=== PATIENT | female | born 1980 | race Caucasian/White ===

== ENCOUNTER 2016-09-30 07:12 | Day surgery (SDC) | payer BC ==
[~2016-09-30 07:12] MED LIST: Acetaminophen/HYDROcodone 325-5 MG Tab PO PRN; Bupivacaine 0.25%/EPINEPHrine 1:200,000 10 ML SDV INJECT ONE; Lactated Ringers 1,000 ML IV SCH; ceFAZolin 2 GM in Premix Bag 1 BAG IV ONE
[2016-09-30] MEDS ORDERED: Bupivacaine 0.25%/EPINEPHrine 1:200,000 10 ML SDV ONE (07:16)
--- NOTE | 2016-09-30 07:34 | PCM.PREANE ---
Preanesthetic Assessment - Anesthesia/Transfusion/Family Hx Anesthesia History: Prior Anesthesia Without Reaction Family History of Anesthesia Reaction: No Transfusion History: No Prior Transfusion(s) - Review of Systems General: No Symptoms Pulmonary: No Symptoms Cardiovascular: No Symptoms Gastrointestinal: No symptoms Neurological: No Symptoms Other: Reports: None - Physical Assessment NPO Status Date: 09/29/16 O2 Sat by Pulse Oximetry: 98 Respiratory Rate: 16 Vital Signs: Last Vital Signs Temp 36.3 C 09/30/16 07:19 Pulse 67 09/30/16 07:19 Resp 16 09/30/16 07:19 BP 130/62 09/30/16 07:19 Pulse Ox 98 09/30/16 07:19 Height: 1.57 m Weight: 119.295 kg ASA Class: 2 Mental Status: Alert & Oriented x3 Airway Class: Mallampati = 2 Dentition: Reports: Normal Dentition (tongue stud) ROM/Head Extension: Full Lungs: Clear to auscultation, Normal respiratory effort Cardiovascular: Regular Rate, Regular Rhythm - Allergies Allergies/Adverse Reactions: Allergies Allergy/AdvReac Type Severity Reaction Status Date / Time No Known Allergies Allergy Verified 04/08/16 10:03 - Blood Blood Available: No - Anesthesia Plan Pre-Op Medication Ordered: None - Acknowledgements Anesthesia Type Planned: MAC Pt an Appropriate Candidate for the Planned Anesthesia: Yes Alternatives and Risks of Anesthesia Discussed w Pt/Guardian: Yes Pt/Guardian Understands and Agrees with Anesthesia Plan: Yes Additional Comments: problem list: Morbid obesity (bmi=48), hyperlipidemia, PCOS, depression PreAnesthesia Questionnaire HEENT History: Reports: Other (See Below) Other HEENT History: wears glasses/contacts Cardiovascular History: Reports: High Cholesterol Gastrointestinal History: Reports: Other (See Below) Other Gastrointestinal History: occasional heartburn Genitourinary History: Reports: None 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: Reports: Polycystic Ovaries Musculoskeletal History: Reports: Back Pain, Chronic Psychiatric History: Reports: Depression Endocrine/Metabolic History: Reports: Obesity/BMI 30+ - Past Surgical History Head Surgeries/Procedures: Reports: None HEENT Surgical History: Reports: Adenoidectomy, Tonsillectomy Female Surgical History: Reports: Breast Reduction - SUBSTANCE USE Smoking Status *Q: Former Smoker Tobacco Use Within Last Twelve Months: No Recreational Drug Use History: No - HOME MEDS Home Medications: Home Meds Pravastatin Sodium 10 mg PO DAILY 04/08/16 [History] Venlafaxine HCl [Venlafaxine ER] 0.5 tab PO DAILY 04/08/16 [History] Vilazodone [Viibryd] 40 mg PO DAILY 04/08/16 [History] metFORMIN HCl [Metformin HCl] 500 mg PO TID 04/08/16 [History] cloNIDine [Catapres] 0.1 mg PO BID 09/28/16 [History] - CURRENT (IN HOUSE) MEDS Current Meds: Current Medications Hydrocodone Bitart/Acetaminophen ([place] 325-5 Mg) 1 tab PO Q4H PRN PRN Reason: Pain Lactated Ringer's (Ringers, Lactated) 1,000 mls @ 125 mls/hr IV ASDIRECTED RENETTA Discontinued Medications Bupivacaine HCl/Epinephrine Bitart (Marcaine 0.25%/Epinephrine 1:200,000) 10 ml INJECT ONETIME ONE Stop: 09/30/16 07:01 Bupivacaine HCl/Epinephrine Bitart (Marcaine 0.25%/Epinephrine 1:200,000) Confirm Administered Dose 30 ml .ROUTE .STK-MED ONE Stop: 09/30/16 07:17 Cefazolin Sodium/Dextrose 2 gm (/ Premix) 50 mls @ 100 mls/hr IV ONETIME ONE Stop: 09/30/16 07:29
[2016-09-30] MEDS ORDERED: Propofol 200 MG/20 ML SDV ONE (08:42)
[2016-09-30] MEDS ORDERED: Lidocaine 2% 5 ML SDV ONE (08:42)
[2016-09-30] MEDS ORDERED: fentaNYL 100 MCG/2 ML SDV ONE (08:42)
[2016-09-30] MEDS ORDERED: Midazolam 1 MG/ML 2 ML SDV ONE (08:42)
[2016-09-30] MEDS ORDERED: Ondansetron 4 MG/2 ML SDV ONE (08:43)
[2016-09-30] MEDS ORDERED: Ketorolac 30 MG/ML SDV ONE (08:43)
[2016-09-30] MEDS ORDERED: fentaNYL 100 MCG/2 ML SDV IVPUSH PRN (09:22)
--- NOTE | 2016-09-30 09:39 | PCM.POSTAN ---
POST ANESTHESIA ASSESSMENT - MENTAL STATUS Mental Status: alert, oriented - RESPIRATORY Respiratory Status: respiratory rate WNL, airway patent, O2 saturation stable - CARDIOVASCULAR CV Status: pulse rate WNL, blood pressure stable - GASTROINTESTINAL GI Status: no symptoms - POST OP HYDRATION Hydration Status: adequate & stable
--- NOTE | 2016-09-30 09:53 | PCM48HPAN ---
Post Anesthesia Note - EVALUATION WITHIN 48HRS OF ANESTHETIC Vital Signs in Normal Range: Yes Patient Participated in Evaluation: Yes Respiratory Function Stable: Yes Airway Patent: Yes Cardiovascular Function Stable: Yes Hydration Status Stable: Yes Pain Control Satisfactory: Yes Nausea and Vomiting Control Satisfactory: Yes Mental Status Recovered: Yes
[2016-09-30 10:02] VITALS: BP 116/58
--- NOTE | 2016-09-30 14:00 | PCM.OPNOTE ---
- General Post-Op/Procedure Note Date of Surgery/Procedure: 09/30/16 Operative Procedure(s): right carpal tunnel release Pre Op Diagnosis: right carpal tunnel syndrome Post-Op Diagnosis: Same Anesthesia Technique: Local, MAC Primary Surgeon: Kristen Wallis Addictions Recovery Specialist: Irina Ramesh Complications: None Condition: Good Free Text/Narrative:: Intake & Output 09/29/16 09/30/16 09/30/16 23:59 07:59 15:59 Intake Total 900 Balance 900
--- NOTE | 2016-10-05 16:59 | OR ---
SURGEON: SHERYL DICKINSON MD DATE OF PROCEDURE: 09/30/2016 PREOPERATIVE DIAGNOSIS: Right carpal tunnel syndrome. POSTOPERATIVE DIAGNOSIS: Right carpal tunnel syndrome. PROCEDURE: Right carpal tunnel release. ANALYTICS SENIOR MANAGER: Irina Ramesh. ANESTHESIA: Local MAC. INDICATIONS: Ms. Honeycutt is a 36-year-old female with right carpal tunnel syndrome. Risks and benefits of release were discussed with her, and she was in agreement to proceed. Risks were including, but not limited to, bleeding, infection, damage to underlying or overlying structures, possible need for future interventions and possible scarring. PROCEDURE IN DETAIL: After informed consent was obtained and placed on the chart, the patient was brought to the operating theater and laid in supine. After adequate local MAC anesthetic was obtained, a time-out was completed to confirm side and site. The area was prepped and draped in a normal fashion using ChloraPrep cleansing solution. Attention was then paid to exsanguination of the arm and the tourniquet was inflated to 200 mmHg. Once adequately insufflated, attention was then paid to dissection over the transverse carpal ligament which was done using a 15 blade through the skin and subcutaneous tissues until the ligament was breached. Dissection was then carried distally and proximally using a Littler scissor. Once adequately dissected and complete release was ensured, the small amount of scar tissue forming around the nerve was released as well. The wound was then copiously irrigated and closed using 5-0 nylon stitches in a horizontal mattress fashion. The patient tolerated the procedure well and the wound was dressed with Xeroform, fluffs, and a Kerlix gauze dressing and a 2-inch ADITYA wrap. FOLLOWUP INSTRUCTIONS: The patient will see us in 10 to 14 days. She was given a prescription for pain control. HEGGTMALIK / MING /[id number]
== END 2016-09-30 10:22 | disposition home or self-care (01) ==
LOC: MW.SDS 07:12
PROVIDERS: ATTEND Plastic Surgery
PROC: 01N50ZZ Release Median Nerve, Open Approach (ICD-10-PCS; principal; 2016-09-30)
DX: G56.01 Carpal tunnel syndrome, right upper limb (principal); E78.00 Pure hypercholesterolemia, unspecified; G89.29 Other chronic pain; M54.9 Dorsalgia, unspecified; F32.9 Major depressive disorder, single episode, unspecified; E78.5 Hyperlipidemia, unspecified; E28.2 Polycystic ovarian syndrome; E66.01 Morbid (severe) obesity due to excess calories; Z87.891 Personal history of nicotine dependence; Z86.19 Personal history of other infectious and parasitic diseases; Z90.89 Acquired absence of other organs; Z98.890 Other specified postprocedural states; Z79.899 Other long term (current) drug therapy; Z68.42 Body mass index [BMI] 45.0-49.9, adult
CPT/HCPCS: 64721; 81025; J1885; J2250; J2405; J3010; 01810; J2704

== ENCOUNTER 2018-10-16 07:18 | Day surgery (SDC) | payer BC ==
[2018-10-16] MEDS ORDERED: Methylene Blue 50 MG/10 ML Ampule ONE (07:32)
[2018-10-16] MEDS ORDERED: Bupivacaine 0.25% 10 ML SDV ONE (07:33)
[2018-10-16] MEDS ORDERED: Fluorescein 5 ML Vial ONE (07:33)
[2018-10-16] MEDS ORDERED: Midazolam 1 MG/ML 2 ML SDV ONE (07:35)
[2018-10-16] MEDS ORDERED: Propofol 200 MG/20 ML SDV ONE ×3 (07:35→11:35)
[2018-10-16] MEDS ORDERED: fentaNYL 250 MCG/5 ML SDV ONE (07:35)
[2018-10-16] MEDS: Lactated Ringers 1,000 ML IV SCH ×2 (08:19→18:15)
--- NOTE | 2018-10-16 08:54 | PCM.PREANE ---
Preanesthetic Assessment - Anesthesia/Transfusion/Family Hx Anesthesia History: Prior Anesthesia Without Reaction Family History of Anesthesia Reaction: No Transfusion History: No Prior Transfusion(s) Intubation History: Unknown - Review of Systems General: No Symptoms Pulmonary: No Symptoms Cardiovascular: No Symptoms Gastrointestinal: No Symptoms Neurological: No Symptoms Other: Reports: None - Physical Assessment NPO Status Date: 10/15/18 NPO Status Time: 23:00 O2 Sat by Pulse Oximetry: 96 Respiratory Rate: 16 Vital Signs: Last Vital Signs Temp 36.2 C 10/16/18 08:00 Pulse 68 10/16/18 08:00 Resp 16 10/16/18 08:00 BP 121/71 10/16/18 08:00 Pulse Ox 96 10/16/18 08:00 Height: 5 ft 2 in Weight: 123.377 kg ASA Class: 3 Mental Status: Alert & Oriented x3 Airway Class: Mallampati = 2 Dentition: Reports: Normal Dentition Thyro-Mental Finger Breadths: 3 Mouth Opening Finger Breadths: 3 ROM/Head Extension: Full Lungs: Clear to Auscultation, Normal Respiratory Effort Cardiovascular: Regular Rate, Regular Rhythm - Lab Values: Laboratory Last Values WBC 8.69 K/uL (4.0-11.0) 10/16/18 07:55 RBC 4.76 M/uL (4.30-5.90) 10/16/18 07:55 Hgb 14.3 g/dL (12.0-16.0) 10/16/18 07:55 Hct 43.8 % (36.0-46.0) 10/16/18 07:55 MCV 92.0 fL (80.0-98.0) 10/16/18 07:55 MCH 30.0 pg (27.0-32.0) 10/16/18 07:55 MCHC 32.6 g/dL (31.0-37.0) 10/16/18 07:55 RDW Std Deviation 43.3 fl (28.0-62.0) 10/16/18 07:55 RDW Coeff of Jacob 13 % (11.0-15.0) 10/16/18 07:55 Plt Count 372 K/uL (150-400) 10/16/18 07:55 MPV 10.20 fL (7.40-12.00) 10/16/18 07:55 Nucleated RBC % 0.0 /100WBC 10/16/18 07:55 Nucleated RBCs # 0 K/uL 10/16/18 07:55 HCG, Qual NEGATIVE (NEG) 10/16/18 07:55 - Allergies Allergies/Adverse Reactions: Allergies Allergy/AdvReac Type Severity Reaction Status Date / Time No Known Allergies Allergy Verified 10/11/18 09:06 - Blood Blood Available: No - Anesthesia Plan Pre-Op Medication Ordered: None - Acknowledgements Anesthesia Type Planned: General Anesthesia Pt an Appropriate Candidate for the Planned Anesthesia: Yes Alternatives and Risks of Anesthesia Discussed w Pt/Guardian: Yes Pt/Guardian Understands and Agrees with Anesthesia Plan: Yes PreAnesthesia Questionnaire HEENT History: Reports: Other (See Below) Other HEENT History: wears glasses/contacts Cardiovascular History: Reports: High Cholesterol Respiratory History: Reports: None Gastrointestinal History: Reports: Other (See Below) Other Gastrointestinal History: rare heartburn Genitourinary History: Reports: None 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: Polycystic Ovaries, Musculoskeletal History: Reports: None Neurological History: Reports: Migraines Other Neuro History: occ migraine Psychiatric History: Reports: Anxiety, Depression Endocrine/Metabolic History: Reports: Obesity/BMI 30+ (BMI 49.7 (morbid obesi) Hematologic History: Reports: None Immunologic History: Reports: None Oncologic (Cancer) History: Reports: None Dermatologic History: Reports: None - Past Surgical History Head Surgeries/Procedures: Reports: None HEENT Surgical History: Reports: Adenoidectomy, Tonsillectomy Cardiovascular Surgical History: Reports: None Respiratory Surgical History: Reports: None GI Surgical History: Reports: None Female Surgical History: Reports: Breast Reduction, Other (See Below) Other Female Surgeries/Procedures: ESSURE Endocrine Surgical History: Reports: None Neurological Surgical History: Reports: None Musculoskeletal Surgical History: Reports: Carpal Tunnel Dermatological Surgical History: Reports: None - SUBSTANCE USE Smoking Status *Q: Never Smoker Tobacco Use Within Last Twelve Months: No Recreational Drug Use History: No - HOME MEDS Home Medications: Home Meds Vilazodone [Viibryd] 40 mg PO DAILY 04/08/16 [History] metFORMIN HCl [Metformin HCl] 500 mg PO TID 04/08/16 [History] Ibuprofen [Motrin] 3 - 4 tab PO ASDIRECTED PRN 10/11/18 [History] Multivitamin [Multivitamins] 1 tab PO DAILY 10/11/18 [History] - CURRENT (IN HOUSE) MEDS Current Meds: Current Medications Lactated Ringer's (Ringers, Lactated) 1,000 mls @ 100 mls/hr IV ASDIRECTED RENETTA Last Admin: 10/16/18 08:19 Dose: 100 mls/hr Discontinued Medications Bupivacaine HCl (Sensorcaine-Mpf 0.25%) Confirm Administered Dose 20 ml .ROUTE .STK-MED ONE Stop: 10/16/18 07:34 Fentanyl (Sublimaze) Confirm Administered Dose 250 mcg .ROUTE .STK-MED ONE Stop: 10/16/18 07:36 Fluorescein Sodium (Ak-Fluor) Confirm Administered Dose 5 ml .ROUTE .STK-MED ONE Stop: 10/16/18 07:34 Methylene Blue (Provayblue) Confirm Administered Dose 50 mg .ROUTE .STK-MED ONE Stop: 10/16/18 07:33 Midazolam HCl (Versed 1 Mg/Ml) Confirm Administered Dose 2 mg .ROUTE .STK-MED ONE Stop: 10/16/18 07:36 Propofol (Diprivan 20 Ml) Confirm Administered Dose 200 mg .ROUTE .STK-MED ONE Stop: 10/16/18 07:36 Propofol (Diprivan 20 Ml) Confirm Administered Dose 200 mg .ROUTE .STK-MED ONE Stop: 10/16/18 07:37
[2018-10-16] MEDS ORDERED: Scopolamine 1.5 MG Transdermal Patch TRDERM PRN (08:57)
[2018-10-16 08:58] LABS: CHLORIDE,CL 104 mmol/L (98-107); SODIUM,NA 141 mmol/L (136-145)
[2018-10-16] MEDS ORDERED: Dexamethasone 4 MG/ML 5 ML MDV ONE (10:05)
[2018-10-16] MEDS ORDERED: Sodium Chloride 0.9% 20 ML ONE (10:05)
[2018-10-16] MEDS ORDERED: Glycopyrrolate 0.2 MG/ML SDV ONE ×2 (10:05→11:22)
[2018-10-16] MEDS ORDERED: Desflurane 240 ML Bottle ONE (10:05)
[2018-10-16] MEDS ORDERED: ceFAZolin 1 GM Vial ONE (10:05)
[2018-10-16] MEDS ORDERED: ceFAZolin/Dextrose,Iso-Osmotic 2 GM/50 ML Duplex Bag IV ONE (10:05)
[2018-10-16] MEDS ORDERED: Rocuronium 100 MG/10 ML MDV ONE (10:11)
[2018-10-16] MEDS ORDERED: HYDROmorphone 2 MG/ML Syringe ONE (10:26)
[2018-10-16] MEDS ORDERED: HYDROmorphone 2 MG/ML SDV IVPUSH ONE (10:27)
[2018-10-16] MEDS ORDERED: fentaNYL 100 MCG/2 ML SDV IVPUSH PRN (10:27)
[2018-10-16] MEDS ORDERED: Furosemide 40 MG/4 ML VIAL ONE (11:22)
[2018-10-16] MEDS ORDERED: Sugammadex Sodium 200 MG/2 ML VIAL ONE (11:44)
[2018-10-16] MEDS ORDERED: Acetaminophen/oxyCODONE 325-5 MG Tab PO PRN ×2 (12:15)
[2018-10-16] MEDS ORDERED: Ketorolac 30 MG/ML SDV IVPUSH ONE (12:15)
[2018-10-16] MEDS ORDERED: Morphine 4 MG/ML Syringe IVPUSH PRN (12:15)
[2018-10-16] MEDS ORDERED: Promethazine 25 MG/ML SDV IM PRN (12:15)
[2018-10-16] MEDS ORDERED: Ondansetron 4 MG/2 ML SDV IVPUSH PRN (12:15)
--- NOTE | 2018-10-16 12:15 | PCM.OPNOTE ---
- General Post-Op/Procedure Note Date of Surgery/Procedure: 10/16/18 Operative Procedure(s): laparoscopically assisted vaginal hysterectomy, bilateral salpingectomy, anterior colporrhaphy and cystoscopy Findings: 2nd degree uterine prolapse, 3rd degree cystocele, left Essure attached to epiploica in the cul de sac (extra-tubal); on cystoscopy, no evidence of trauma to the bladder mucosa; copious flow of urine from bilateral ureteral orifices. Pre Op Diagnosis: incomplete uterovaginal prolapse. Post-Op Diagnosis: Same Anesthesia Technique: General ET Tube Primary Surgeon: Mari Rodríguez Secondary Surgeon: Kiana Schmitt Anesthesia Provider: Yifan Kent Security Checker: Josie Zacarias Pathology: uterus, bilateral fallopian tubes with Essure coils; vaginal mucosa. Fluid Replacement, Intraop: 2,000 Output, Urine Amount: 250 EBL in mLs: 200 Complications: None Known Condition: Good
--- NOTE | 2018-10-16 13:00 | PCM.POSTAN ---
POST ANESTHESIA ASSESSMENT - MENTAL STATUS Mental Status: Alert, Oriented - VITAL SIGNS Pulse Rate: 68 SaO2: 96 Resp Rate: 12 Blood Pressure: 134/80 - RESPIRATORY Respiratory Status: Respiratory Rate WNL, Airway Patent, O2 Saturation Stable - CARDIOVASCULAR CV Status: Pulse Rate WNL, Blood Pressure Stable - GASTROINTESTINAL GI Status: No Symptoms - POST OP HYDRATION Hydration Status: Adequate & Stable
[2018-10-16] MEDS ORDERED: Belladonna Alkaloids/Opium 16.2-30 MG Supp RECTAL ONE (17:32)
--- NOTE | 2018-10-16 18:11 | OR ---
SURGEON: Mari Rodríguez M.D. DATE OF PROCEDURE: 10/16/2018 PREOPERATIVE DIAGNOSIS: Incomplete uterovaginal prolapse. POSTOPERATIVE DIAGNOSIS: Incomplete uterovaginal prolapse. PROCEDURES PERFORMED: Laparoscopically assisted vaginal hysterectomy, bilateral salpingectomy, cystoscopy, and anterior colporrhaphy. PRIMARY SURGEON: Mari Rodríguez M.D. CONTRACT MANAGER: Kiana Schmitt M.D. ANESTHESIA: General endotracheal. FLUIDS: 2000 mL of crystalloid. ESTIMATED BLOOD LOSS: 200 mL. URINE OUTPUT: 250 mL. FINDINGS: Uterus was 8-10 week size. Second-degree uterine prolapse, third-degree cystocele. Bilateral ovaries appeared normal. There was an Essure coil noted in the proximal aspect of the right tube. The left Essure device was in the posterior cul-de-sac and was removed with an epiploica. There was a piece of the coil that was also removed. On cystoscopy, there were copious flow of bright green urine from bilateral ureteral orifices and no damage evident of the vaginal mucosa. COMPLICATIONS: None known. DISPOSITION: Stable to recovery. BRIEF HISTORY: This is a 38-year-old female. She has symptomatic uterovaginal prolapse primarily with bladder issues. She has a third-degree cystocele, second-degree uterine prolapse. She was offered vaginal hysterectomy with anterior colporrhaphy with a laparoscopically assisted approach due to the history of Essure coils which should be removed at the time of surgery. She underwent a cystometry in the office with severe evidence of detrusor instability. She has been started on Myrbetriq. She was not recommended to proceed with a mid urethral sling due to the fact that this was felt to potentially worsen her severe detrusor instability. Risks of surgery were discussed including bleeding, infection, injury to bowel, bladder, blood vessels, ureters, or other organs; risk of thromboembolic event, risk of change in sexual function, risk of recurrence of prolapse of 20% to 40%, and risk of anesthesia. Understanding all these risks, she does desire to proceed. DESCRIPTION OF PROCEDURE: With the patient in dorsal lithotomy position, under adequate general endotracheal anesthesia, the abdomen was prepped with chlorhexidine. The vaginal area was prepped with Betadine and draped in usual fashion for laparoscopically assisted vaginal surgery. SCDs were in place. She received 3 g of Ancef IV and a Moon catheter had been placed and backfilled with 30 mL of dilute and indigo carmine. After appropriate time-out was held, bimanual examination revealed findings as noted above. Speculum was placed in the vagina. The cervix was grasped with an Allis clamp. The ZUMI uterine manipulator was placed to the uterine fundus and the balloon was filled with air. The speculum was removed. Intensivist's gloves were changed. Attention was then turned abdominally where 3 mL of 0.25% Marcaine were injected cephalad from the umbilicus and a 5 mm incision was made with a scalpel. The anterior abdominal wall was elevated. Veress needle was inserted. Opening pressure was 3 to 5 mmHg. CO2 was insufflated to develop an adequate pneumoperitoneum of 15 mmHg. The 5 mm port was then placed via the umbilical incision. There was excellent visualization of the pelvis. There was no evidence of any trauma from the port placement site. Two additional ports were placed 2 cm medial and cephalad from the anterior superior iliac spine on the right and the left in a similar fashion without any difficulty. The patient was placed in Trendelenburg position. The uterus was elevated immediately. There was note that the Essure device was in the posterior cul-de-sac. It was grasped and removed. There was an area with an epiploica that appeared dark and upon further inspection, there was a portion of the Essure coil that was implanted into the epiploica, and this was dissected and removed without difficulty. There was no evidence of any other portion of the Essure device external to the uterus. Therefore, the pelvis was inspected. The ureters were identified bilaterally, were deep within the medial leaf of the broad ligament. The tip of the tube on the left was grasped. The ligament between the tube and the ovary was ligated using the LigaSure and utilizing the LigaSure, I proceeded proximally along the mesosalpinx to the uterine cornua where the utero-ovarian ligament was cross clamped, cut, and ligated using the LigaSure. The round ligament was then doubly clamped, cut, and ligated using the LigaSure, and the anterior leaf of the broad ligament was entered and dissected open and transversely anteriorly across the lower uterine segment to develop an adequate bladder flap. This process was repeated on the opposite side. Attention was then turned vaginally. After the abdomen had been desufflated and the catheter was released, weighted speculum was placed posteriorly and right angle speculums were placed for visualization of the cervix. The cervix was grasped with a Cassandra tenaculum and circumscribed using electrocautery. The anterior and posterior cul-de-sacs were entered sharply and the uterosacral ligaments were cross clamped, cut, and ligated using a Kaykay ligature of 2-0 Polysorb. These were retained with the suture intact. The 2 additional pedicles were taken on the right and the left to meet the pedicles from above. These were doubly clamped with Kaykay clamps, cut, and doubly ligated using a Kaykay ligature of 2-0 Polysorb. With this, the tubes and uterus were then removed vaginally. The retained uterosacral ligaments were ligated to the vaginal apices bilaterally and were then used to incorporate the cul-de-sac, peritoneum on the right and the left, and they were then tied in the midline. The anterior vaginal mucosa at the vaginal cuff was grasped. The anterior vaginal wall was hydrodissected and incised using Metzenbaum scissors in the midline. The muscularis layer was then dissected free and reapproximated the midline using multiple interrupted sutures of 2-0 Polysorb. The scant amount of extra vaginal mucosa was then removed and the vaginal mucosa was closed with a running lock suture of 0 Polysorb incorporating this into the closure of the vaginal cuff. This being completed, the catheter was removed. Cystoscopy was performed. There was excellent visualization. IV fluorescein and Lasix had been given. There was copious flow of bright green urine from bilateral ureteral orifices. There was no evidence of any trauma to the bladder mucosa. This being completed, the speculum was placed in the vagina after the catheter had been replaced in the bladder. There was a small amount of bleeding from the posterior aspect of the vaginal apex and this was controlled using a [id number] suture of 0 Polysorb. This being hemostatic, the vagina was then packed with vaginal packing. All the instruments were removed from the vagina. Intensivist's gloves were again changed. Abdomen was reinsufflated and was carefully cleaned and irrigated, and the pelvis was completely hemostatic low pressure of 5 mmHg, and therefore the abdomen was completely desufflated. Port sites were removed. Port sites were closed with subcuticular suture of 4-0 Monocryl. Final sponge, needle, and instrument counts were reported as correct. There were no complications. The patient was transferred to recovery in good condition. CROW LAI /[id number]
[2018-10-16] MEDS ORDERED: Ketorolac 30 MG/ML SDV IVPUSH PRN (18:15)
--- NOTE | 2018-10-16 18:34 | PCM.SN ---
- Free Text/Narrative Note: Patient's pain is currently well controlled. She is tolerating diet. After morphine pain from bladder seems to be resolved. Reviewed operative findings including extrauterine Essure device which was removed. Continue with postoperative care
[2018-10-17 06:25] LABS: CHLORIDE,CL 103 mmol/L (98-107); SODIUM,NA 137 mmol/L (136-145)
--- NOTE | 2018-10-17 07:52 | PCM48HPAN ---
Post Anesthesia Note - EVALUATION WITHIN 48HRS OF ANESTHETIC Vital Signs in Normal Range: Yes Patient Participated in Evaluation: Yes Respiratory Function Stable: Yes Airway Patent: Yes Cardiovascular Function Stable: Yes Hydration Status Stable: Yes Pain Control Satisfactory: Yes Nausea and Vomiting Control Satisfactory: Yes Mental Status Recovered: Yes Pulse Rate: 68 Resp Rate: 16 Blood Pressure: 134/80 - COMMENTS/OBSERVATIONS Free Text/Narrative:: no anesthesia problems
[2018-10-17 08:34] VITALS: BP 140/67
[2018-10-17] MEDS ORDERED: Vilazodone [Viibryd] 40 MG PO SCH (09:00)
--- NOTE | 2018-10-17 09:12 | PCM.SURGPN ---
- General Info Date of Service: 10/17/18 Date of Surgery/Procedure: 10/16/18 POD#: 1 Post-Op Diagnosis: incomplete uterovaginal prolapse Functional Status: Reports: Pain Controlled, Tolerating Diet, Ambulating, Urinating - Review of Systems General: Reports: No Symptoms Pulmonary: Reports: No Symptoms Cardiovascular: Reports: No Symptoms Genitourinary: Reports: No Symptoms Musculoskeletal: Reports: No Symptoms Skin: Reports: No Symptoms Neurological: Reports: No Symptoms Psychiatric: Reports: No Symptoms - Patient Data Vitals - Most Recent: Last Vital Signs Temp 37.7 C 10/17/18 07:55 Pulse 94 10/17/18 07:55 Resp 20 10/17/18 07:55 BP 140/67 10/17/18 07:55 Pulse Ox 95 10/17/18 07:55 Weight - Most Recent: 123.377 kg I&O - Last 24 Hours: Intake & Output 10/16/18 10/17/18 10/17/18 22:59 06:59 14:59 Output Total 250 3600 Balance -250 -3600 Lab Results Last 24 Hrs: Laboratory Results - last 24 hr 10/16/18 10/17/18 10/17/18 Range/Units 07:55 05:33 05:33 WBC 14.19 H (4.0-11.0) K/uL RBC 3.50 L (4.30-5.90) M/uL Hgb 10.8 L (12.0-16.0) g/dL Hct 32.3 L (36.0-46.0) % MCV 92.3 (80.0-98.0) fL MCH 30.9 (27.0-32.0) pg MCHC 33.4 (31.0-37.0) g/dL RDW Std Deviation 43.2 (28.0-62.0) fl RDW Coeff of Jacob 13 (11.0-15.0) % Plt Count 341 (150-400) K/uL MPV 10.20 (7.40-12.00) fL Neut % (Auto) 78.7 (48.0-80.0) % Lymph % (Auto) 12.4 L (16.0-40.0) % Whitley % (Auto) 8.5 (0.0-15.0) % Eos % (Auto) 0.3 (0.0-7.0) % Baso % (Auto) 0.1 (0.0-1.5) % Neut # (Auto) 11.2 H (1.4-5.7) K/uL Lymph # (Auto) 1.8 (0.6-2.4) K/uL Whitley # (Auto) 1.2 H (0.0-0.8) K/uL Eos # (Auto) 0.0 (0.0-0.7) K/uL Baso # (Auto) 0.0 (0.0-0.1) K/uL Nucleated RBC % 0.0 /100WBC Nucleated RBCs # 0 K/uL Sodium 137 (136-145) mmol/L Potassium 3.9 (3.5-5.1) mmol/L Chloride 103 (98-107) mmol/L Carbon Dioxide 25.8 (21.0-32.0) mmol/L BUN 12 (7.0-18.0) mg/dL Creatinine 1.0 (0.6-1.0) mg/dL Est Cr Clr Drug Dosing 61.51 mL/min Estimated GFR (MDRD) > 60.0 ml/min Glucose 151 H (74-106) mg/dL Calcium 8.4 L (8.5-10.1) mg/dL Blood Type AB POSITIVE Antibody Screen NEGATIVE Med Orders - Current: Current Medications Fentanyl (Sublimaze) 50 mcg IVPUSH Q5M PRN PRN Reason: Pain (severe 7-10) Stop: 10/17/18 10:28 Lactated Ringer's (Ringers, Lactated) 1,000 mls @ 100 mls/hr IV ASDIRECTED [facility] Last Admin: 10/16/18 18:15 Dose: 100 mls/hr Ketorolac Tromethamine (Toradol) 30 mg IVPUSH Q6H PRN PRN Reason: Pain (severe 7-10) Stop: 10/21/18 18:16 Morphine Sulfate (Morphine) 4 mg IVPUSH Q2H PRN PRN Reason: Pain (severe 7-10) Last Admin: 10/16/18 16:09 Dose: 4 mg Ondansetron HCl (Zofran) 4 mg IVPUSH Q6H PRN PRN Reason: Nausea/Vomiting Oxycodone/Acetaminophen (Percocet 325-5 Mg) 1 tab PO Q4H PRN PRN Reason: Pain (moderate 4-6) Oxycodone/Acetaminophen (Percocet 325-5 Mg) 2 tab PO Q4H PRN PRN Reason: Pain (moderate 4-6) Last Admin: 10/16/18 22:13 Dose: 2 tab Vilazodone [Viibryd] (40 Mg) 40 each PO DAILY [facility] Promethazine HCl (Phenergan) 25 mg IM Q6H PRN PRN Reason: Nausea/Vomiting Scopolamine (Transderm-Scop) 1.5 mg TRDERM Q72H PRN PRN Reason: Nausea Last Admin: 10/16/18 09:11 Dose: 1.5 mg Discontinued Medications Bupivacaine HCl (Sensorcaine-Mpf 0.25%) Confirm Administered Dose 20 ml .ROUTE .STK-MED ONE Stop: 10/16/18 07:34 Cefazolin Sodium (Ancef) Confirm Administered Dose 2 gm .ROUTE .STK-MED ONE Stop: 10/16/18 10:06 Cefazolin Sodium/Dextrose (Ancef) Confirm Administered Dose 2 gm IV .STK-MED ONE Stop: 10/16/18 10:06 Desflurane (Suprane) Confirm Administered Dose 240 ml .ROUTE .STK-MED ONE Stop: 10/16/18 10:06 Dexamethasone (Dexamethasone) Confirm Administered Dose 20 mg .ROUTE .STK-MED ONE Stop: 10/16/18 10:06 Fentanyl (Sublimaze) Confirm Administered Dose 250 mcg .ROUTE .STK-MED ONE Stop: 10/16/18 07:36 Fluorescein Sodium (Ak-Fluor) Confirm Administered Dose 5 ml .ROUTE .STK-MED ONE Stop: 10/16/18 07:34 Furosemide (Lasix) Confirm Administered Dose 40 mg .ROUTE .STK-MED ONE Stop: 10/16/18 11:23 Glycopyrrolate (Robinul) Confirm Administered Dose 0.4 mg .ROUTE .STK-MED ONE Stop: 10/16/18 10:06 Glycopyrrolate (Robinul) Confirm Administered Dose 0.2 mg .ROUTE .STK-MED ONE Stop: 10/16/18 11:23 Hydromorphone HCl (Dilaudid) 2 mg IVPUSH ONETIME ONE Stop: 10/16/18 10:28 Last Admin: 10/16/18 15:42 Dose: Not Given Hydromorphone HCl (Dilaudid) Confirm Administered Dose 2 mg .ROUTE .STK-MED ONE Stop: 10/16/18 10:27 Sodium Chloride (Normal Saline) Confirm Administered Dose 20 mls @ as directed .ROUTE .STK-MED ONE Stop: 10/16/18 10:06 Ketorolac Tromethamine (Toradol) 30 mg IVPUSH ONETIME ONE Stop: 10/16/18 12:16 Last Admin: 10/16/18 13:32 Dose: 30 mg Methylene Blue (Provayblue) Confirm Administered Dose 50 mg .ROUTE .STK-MED ONE Stop: 10/16/18 07:33 Midazolam HCl (Versed 1 Mg/Ml) Confirm Administered Dose 2 mg .ROUTE .STK-MED ONE Stop: 10/16/18 07:36 Propofol (Diprivan 20 Ml) Confirm Administered Dose 200 mg .ROUTE .STK-MED ONE Stop: 10/16/18 07:36 Propofol (Diprivan 20 Ml) Confirm Administered Dose 200 mg .ROUTE .STK-MED ONE Stop: 10/16/18 07:37 Propofol (Diprivan 20 Ml) Confirm Administered Dose 200 mg .ROUTE .STK-MED ONE Stop: 10/16/18 11:36 Rocuronium Blanchard (Zemuron) Confirm Administered Dose 100 mg .ROUTE .STK-MED ONE Stop: 10/16/18 10:12 Sugammadex Sodium (Bridion) Confirm Administered Dose 400 mg .ROUTE .STK-MED ONE Stop: 10/16/18 11:45 - Exam Wound/Incisions: Dressing Dry and Intact General: Alert, Oriented Lungs: Normal Respiratory Effort GI/Abdominal Exam: Soft, Non-Tender, No Organomegaly, No Mass Extremities: Normal Inspection, Non-Tender, No Pedal Edema, Normal Capillary Refill Skin: Warm, Dry, Intact Neurological: No New Focal Deficit Psy/Mental Status: Alert - Problem List & Annotations (1) Incomplete uterovaginal prolapse SNOMED Code(s): 523026708 Code(s): N81.2 - INCOMPLETE UTEROVAGINAL PROLAPSE Status: Acute Current Visit: Yes - Problem List Review Problem List Initiated/Reviewed/Updated: Yes - My Orders Last 24 Hours: Active Orders 24 hr Category Date Time Status Patient Status [ADT] Routine ADT 10/16/18 12:15 Active Antiembolic Devices [RC] PER UNIT ROUTINE Care 10/16/18 12:16 Active Bradycardia-Neuroaxis [employer] [RC] ROUTINE Care 10/16/18 10:28 Active Hypertension-Neuroaxis [employer] [RC] ROUTINE Care 10/16/18 10:28 Active Hypotension-Neuroaxis [employer] [RC] ROUTINE Care 10/16/18 10:28 Active Notify Provider Intake and Out [RC] ASDIRECTED Care 10/16/18 12:15 Active Notify Provider Vital Signs [RC] ASDIRECTED Care 10/16/18 12:15 Active Oxygen Therapy [RC] ASDIRECTED Care 10/16/18 12:15 Active RT Incentive Spirometry [RC] Q2HWA Care 10/16/18 12:15 Active Up ad Delores [RC] PER UNIT ROUTINE Care 10/16/18 12:15 Active Urinary Catheter Removal [RC] Per Unit Routine Care 10/16/18 12:15 Active Vital Signs [RC] PER UNIT ROUTINE Care 10/16/18 12:15 Active Regular Diet [DIET] Diet 10/16/18 Dinner Active Acetaminophen/oxyCODONE [Percocet 325-5 MG] Med 10/16/18 12:15 Active 1 tab PO Q4H PRN Acetaminophen/oxyCODONE [Percocet 325-5 MG] Med 10/16/18 12:15 Active 2 tab PO Q4H PRN Ketorolac [Toradol] Med 10/16/18 18:15 Active 30 mg IVPUSH Q6H PRN Mirabegron [Myrbetriq] Med 10/16/18 12:30 Unverified DOSE UNIT RTE FREQ Morphine Med 10/16/18 12:15 Active 4 mg IVPUSH Q2H PRN Ondansetron [Zofran] Med 10/16/18 12:15 Active 4 mg IVPUSH Q6H PRN Patient's Own Medication [Ptom] Med 10/17/18 09:00 Active 40 each PO DAILY Promethazine [Phenergan] Med 10/16/18 12:15 Active 25 mg IM Q6H PRN Scopolamine [Transderm-Scop] Med 10/16/18 08:57 Active 1.5 mg TRDERM Q72H PRN fentaNYL [Sublimaze] Med 10/16/18 10:27 Active 50 mcg IVPUSH Q5M PRN Peripheral IV Discontinue [OM.PC] Routine Oth 10/16/18 12:15 Ordered Remove Vaginal Packing [OM.PC] Per Unit Routine Oth 10/16/18 12:16 Ordered Sequential Compression Device [OM.PC] Per Unit Routine Oth 10/16/18 12:15 Ordered Resuscitation Status Routine Resus Stat 10/16/18 12:15 Ordered Medication Orders Fentanyl (Sublimaze) 50 mcg IVPUSH Q5M PRN PRN Reason: Pain (severe 7-10) Stop: 10/17/18 10:28 Lactated Ringer's (Ringers, Lactated) 1,000 mls @ 100 mls/hr IV ASDIRECTED [facility] Last Admin: 10/16/18 18:15 Dose: 100 mls/hr Infusion: 10/16/18 18:15 Dose: 100 mls/hr Admin: 10/16/18 08:19 Dose: 100 mls/hr Ketorolac Tromethamine (Toradol) 30 mg IVPUSH Q6H PRN PRN Reason: Pain (severe 7-10) Stop: 10/21/18 18:16 Morphine Sulfate (Morphine) 4 mg IVPUSH Q2H PRN PRN Reason: Pain (severe 7-10) Last Admin: 10/16/18 16:09 Dose: 4 mg Ondansetron HCl (Zofran) 4 mg IVPUSH Q6H PRN PRN Reason: Nausea/Vomiting Oxycodone/Acetaminophen (Percocet 325-5 Mg) 1 tab PO Q4H PRN PRN Reason: Pain (moderate 4-6) Oxycodone/Acetaminophen (Percocet 325-5 Mg) 2 tab PO Q4H PRN PRN Reason: Pain (moderate 4-6) Last Admin: 10/16/18 22:13 Dose: 2 tab Vilazodone [Viibryd] (40 Mg) 40 each PO DAILY [facility] Promethazine HCl (Phenergan) 25 mg IM Q6H PRN PRN Reason: Nausea/Vomiting Scopolamine (Transderm-Scop) 1.5 mg TRDERM Q72H PRN PRN Reason: Nausea Last Admin: 10/16/18 09:11 Dose: 1.5 mg - Assessment Assessment (Free Text/Narrative):: POD#1 after LAVH, bilateral salpingectomy and cystoscopy. Stable, pain is well controlled with Percocet. She would like to go home today. She is ambulating tolerating regular diet and has voided after catheter and vaginal packing have been removed. - Plan Plan (Free Text/Narrative):: Dismiss to home, discharge instructions reviewed.
== END 2018-10-17 09:36 | disposition home or self-care (01) ==
LOC: MW.SDS 07:18 → MW.OB 11:35 → MW.SDS 10-17 09:36
PROVIDERS: ATTEND Obstetrics & Gynecology
DX: N81.2 Incomplete uterovaginal prolapse (principal); R32 Unspecified urinary incontinence; E78.00 Pure hypercholesterolemia, unspecified; F32.9 Major depressive disorder, single episode, unspecified; Z87.891 Personal history of nicotine dependence; Z80.41 Family history of malignant neoplasm of ovary; Z79.84 Long term (current) use of oral hypoglycemic drugs; Z79.899 Other long term (current) drug therapy
CPT/HCPCS: 36415; 57240; 58552; 80048; 84703; 85025; 85027; 86850; 86900; 86901; A9270; J0690; J1100; J1170; J1885; J1940; J2250; J2270; J2704; J3010; J3490; J7120; 88300; 88302; 88307

== ENCOUNTER 2020-02-13 11:58 | Day surgery (SDC) | payer MEDICAID ==
[2020-02-13] MEDS ORDERED: Lidocaine 2% 5 ML SDV INJECT ONE (13:30)
[2020-02-13] MEDS ORDERED: Ropivacaine 0.5% 5 MG/ML 30 ML SDV INJECT ONE (13:30)
[2020-02-13] MEDS ORDERED: Betamethasone Acetate/Betamethasone Sod Phosphate 30 MG/5 ML MDV EPIDUR ONE (13:30)
[2020-02-13] MEDS ORDERED: Iopamidol 200-M 10 ML vial ITHECAL ONE (13:30)
--- NOTE | 2020-02-13 17:05 | OR ---
SURGEON: Yin Calvin D.O. DATE OF PROCEDURE: 02/13/2020 PRIMARY SURGEON: Yin Calvin DO ASSISTANTS: OR staff present: 1. Tom Sanders RT. 2. Mariam Cazares RN. 3. Lesly Mayers RN. PREOPERATIVE DIAGNOSES: 1. Lumbar degenerative disk disease, L5-S1. 2. Right L5-S1 radiculopathy. 3. Chronic low back pain. 4. Lumbar spondylosis. POSTOPERATIVE DIAGNOSES: 1. Lumbar degenerative disk disease, L5-S1. 2. Right L5-S1 radiculopathy. 3. Chronic low back pain. 4. Lumbar spondylosis. PROCEDURES PERFORMED: 1. Right S1 transforaminal epidural steroid injection. 2. Fluoroscopic guidance for needle placement. 3. Local with oral Valium for sedation. SCREENING QUESTIONS: The patient answered "no" to all of the following questions: 1. Are you allergic to iodine, Betadine or latex? 2. Do you have a bleeding disorder? 3. Do you have any joint replacements, heart valve replacements, or a pacemaker? 4. Are you allergic to anti-inflammatories or blood thinners? 5. Do you have any current local or systemic infections? DESCRIPTION OF PROCEDURE: The patient had the procedure thoroughly explained including risks, benefits and alternatives. Consent was signed in my clinic indicating understanding and willingness to proceed. The patient presented to [facility] where the patient was escorted to the dressing room to disrobe and change into a hospital gown. Preoperative vital signs were taken and stable. The patient reported that Valium was taken prior to the procedure. The patient was brought to the procedure room and placed in the prone position on the table. A pillow was placed under the abdomen in order to flatten the lumbar lordosis. The back was prepped with ChloraPrep and sterilely draped. All personnel in the operating room were dressed in appropriate attire including surgical scrubs, head and shoe covers. This was to ensure sterility while in the treatment room. During the time fluoroscopy was in use, all personnel in the operating room wore lead sin with thyroid collars. Sterile technique was used during the procedure. The fluoroscope was placed for the right S1 transforaminal epidural steroid injection. There was no sign of infection at the skin site for needle insertion. The skin was anesthetized with 2% lidocaine with a 27 gauge 1-1/2 inch needle. Then, a 22 gauge 3-1/2 inch spinal needle, advanced to the right S1. Under direct fluoroscopic guidance needle position was verified in three views; AP, oblique and lateral, with 0.2 cubic centimeters increments of Isovue- 200 dye. No intravascular flow pattern was observed under live fluoroscopy. Then 12 milligrams of Celestone and local was slowly injected after negative aspiration of heme, cerebrospinal fluid and no paresthesias were noted. The needle was cleared prior to removal from the skin. No adverse reactions were noted. The patient was brought to the recovery room awake and in good condition by my staff. The patient was monitored and discharge instructions were given after a brief stay in the recovery area. Both oral and written discharge and follow up instructions were given. The patient will follow up in the clinic in 3-4 weeks post procedure to evaluate the efficacy. The patient verbalized understanding including understanding of those signs and symptoms that would require emergency care and knows how to contact the office if there are any problems or questions in the meantime. PREOPERATIVE PAIN: 5/10. POSTOPERATIVE PAIN: 0/10. FOLLOWUP: In the Pain Clinic in 3 weeks. JEANNE / MING /[id number] CECIL
== END 2020-02-13 13:44 ==
LOC: MW.SDS 11:58
PROVIDERS: ATTEND Anesthesiology
DX: G89.29 Other chronic pain (principal); M51.17 Intervertebral disc disorders with radiculopathy, lumbosacral region; M47.27 Other spondylosis with radiculopathy, lumbosacral region; F32.9 Major depressive disorder, single episode, unspecified; M47.26 Other spondylosis with radiculopathy, lumbar region; M51.16 Intervertebral disc disorders with radiculopathy, lumbar region; M79.18 Myalgia, other site; M47.896 Other spondylosis, lumbar region; Z79.899 Other long term (current) drug therapy

== ENCOUNTER 2020-04-03 08:40 | Emergency (ER) | payer MEDICAID ==
--- NOTE | 2020-04-03 09:27 | EDM.PDOC ---
ED HPI GENERAL MEDICAL PROBLEM - General Chief Complaint: Genitourinary Problem Stated Complaint: UNKNOWN Time Seen by Provider: 04/03/20 08:48 - History of Present Illness INITIAL COMMENTS - FREE TEXT/NARRATIVE: CHIEF COMPLAINT(S): Foreign body in vagina HISTORY OF PRESENT ILLNESS: This is a 39-year-old woman with a past medical history of diabetes mellitus who comes to the emergency department with a chief complaint of foreign body in vagina. The patient states that she was using a vibrator and after she took it out she noticed that one of the small balls was broken. She states there is normally to balls and she thinks one of them is stuck. States that she called her enterprise security architect and they recommend she come in here for evaluation. She denies any vaginal bleeding, vaginal discharge, pain. She states this happened approximately 12 hours prior to arrival. REVIEW OF SYSTEMS: Constitutional: Denies fever, chills. Eyes: Denies eye pain Ears, Nose, Mouth, & Throat: Denies earache Cardiovascular: Denies chest pain Respiratory: Denies shortness of breath Gastrointestinal: Denies Nausea, vomiting, diarrhea, hematochezia. Genitourinary: Positive for foreign body in vagina. Denies vaginal bleeding, vaginal discharge, pain Skin:Denies a rash Neurological: Denies blurred vision Psychiatric: Denies depression PAST MEDICAL HISTORY: As per history of present illness and as reviewed below otherwise noncontributory. SURGICAL HISTORY: As per history of present illness and as reviewed below otherwise noncontributory. SOCIAL HISTORY: As per history of present illness and as reviewed below otherwise noncontributory. FAMILY HISTORY: As per history of present illness and as reviewed below otherwise noncontributory. EXAMINATION OF ORGAN SYSTEMS/BODY AREAS: Constitutional: Blood pressure was 133/73, heart rate 84, respiratory 18 with an oxygen saturation 95% on room air. Temperature 36.2 General: Overall well-appearing woman who is in no acute distress Psychiatric: Appropriate mood and affect. Eyes: No scleral icterus or conjunctival erythema ENMT: Neck is supple Cardiovascular: Regular, rate, and rhythm. No gallops, murmurs, or rubs. Respiratory: Lungs clear to auscultation bilaterally. No wheezes, rales, or rhonchi. Gastrointestinal: Soft, non-tender, non-distended. Genitourinary: No suprapubic tenderness pelvic exam was performed with RN fabian Romero in presence. Patient had normal female external genitalia without any lesions. On speculum examination cervix could be visualized without any abnormalities. There was no foreign body identified in the vaginal canal. On bimanual examination there was no tenderness and no foreign body again could be palpated. Musculoskeletal: Normal range of motion. Skin: No lesions or abrasions. Neurological: Alert, GCS 15 MEDICAL DECISION MAKING AND COURSE IN THE ED WITH INTERPRETATION/REVIEW OF DIAGNOSTIC STUDIES: This is a 39-year-old woman with a past measure diabetes mellitus who comes to the emergency department with possible retained foreign vaginal body. At this time we did perform a pelvic examination and there was no evidence of retained body. I did discuss with the patient that at this time we did not visualize anything in the vaginal canal. I discussed with her that if she were to have any vaginal bleeding, vaginal discharge, or pain she need to return to the emergency department. I discussed the importance of following up with gynecology. She was amenable to discharge at this time and had no further questions DISPOSITION: The patient was discharged home in stable condition. The patient will follow up with gynecology CONDITION: Fair PROCEDURES: None FINAL IMPRESSION(S)/DIAGNOSES: 1. Acute encounter for possible vaginal foreign body Jb Woods M.D. - Related Data Allergies Allergy/AdvReac Type Severity Reaction Status Date / Time No Known Allergies Allergy Verified 04/03/20 09:13 Home Meds: Home Meds Vilazodone [Viibryd] 40 mg PO DAILY 04/08/16 [History] metFORMIN HCl [Metformin HCl] 500 mg PO TID 04/08/16 [History] Ibuprofen [Motrin] 3 - 4 tab PO ASDIRECTED PRN 10/11/18 [History] Multivitamin [Multivitamins] 1 tab PO DAILY 10/11/18 [History] Mirabegron [Myrbetriq] 50 mg 10/16/18 [History] Acetaminophen/oxyCODONE [Percocet 325-5 MG] 1 tab PO Q6HR PRN #15 tablet 10/17/18 [Rx] Past Medical History HEENT History: Reports: Other (See Below) Other HEENT History: wears glasses/contacts Cardiovascular History: Reports: High Cholesterol Respiratory History: Reports: None Gastrointestinal History: Reports: Other (See Below) Other Gastrointestinal History: rare heartburn Genitourinary History: Reports: None PSYCHOTHERAPIST History: Reports: Polycystic Ovaries, Musculoskeletal History: Reports: None Neurological History: Reports: Migraines Other Neuro History: occ migraine Psychiatric History: Reports: Anxiety, Depression Endocrine/Metabolic History: Reports: Obesity/BMI 30+ (BMI 49.7 (morbid obesi) Hematologic History: Reports: None Immunologic History: Reports: None Oncologic (Cancer) History: Reports: None Dermatologic History: Reports: None - Past Surgical History Head Surgeries/Procedures: Reports: None HEENT Surgical History: Reports: Adenoidectomy, Tonsillectomy Cardiovascular Surgical History: Reports: None Respiratory Surgical History: Reports: None GI Surgical History: Reports: None Female Surgical History: Reports: Breast Reduction, Other (See Below) Other Female Surgeries/Procedures: ESSURE Endocrine Surgical History: Reports: None Neurological Surgical History: Reports: None Musculoskeletal Surgical History: Reports: Carpal Tunnel Dermatological Surgical History: Reports: None Social & Family History - Family History Family Medical History: No Pertinent Family History ED ROS GENERAL - Review of Systems Review Of Systems: See Below ED EXAM, RENAL/ - Physical Exam Exam: See Below Course - Vital Signs Last Recorded V/S: Last Vital Signs Temp 36.2 C 04/03/20 08:58 Pulse 84 04/03/20 08:58 Resp 18 04/03/20 08:58 BP 133/73 04/03/20 08:58 Pulse Ox 95 04/03/20 08:58 Departure - Departure Time of Disposition: 09:25 Disposition: Home, Self-Care 01 Condition: Fair Clinical Impression: Retained vaginal foreign body Qualifiers: Encounter type: initial encounter Qualified Code(s): T19.2XXA - Foreign body in vulva and vagina, initial encounter - Discharge Information *PRESCRIPTION DRUG MONITORING PROGRAM REVIEWED*: No *COPY OF PRESCRIPTION DRUG MONITORING REPORT IN PATIENT CED: No Instructions: Vaginal Foreign Body Referrals: PCP,None [Primary Care Provider] - Forms: ED Department Discharge Additional Instructions: The patient is informed of any results of their evaluation and diagnostic workup and all questions are answered. They are given discharge instructions and return precautions. The patient is stable for discharge. The patient states they understand and agree with the plan and that they will return if their symptoms get worse or if they have any new concerns. The following information is given to patients seen in the emergency department who are being discharged to home. This information is to outline your options for follow-up care. We provide all patients seen in our emergency department with a follow-up referral. The need for follow-up, as well as the timing and circumstances, are variable depending upon the specifics of your emergency department visit. If you don't have a primary care physician on staff, we will provide you with a referral. We always advise you to contact your personal physician following an emergency department visit to inform them of the circumstance of the visit and for follow-up with them and/or the need for any referrals to a consulting specialist. The emergency department will also refer you to a specialist when appropriate. This referral assures that you have the opportunity for follow-up care with a specialist. All of these measure are taken in an effort to provide you with optimal care, which includes your follow-up. Under all circumstances we always encourage you to contact your private physician who remains a resource for coordinating your care. When calling for follow-up care, please make the office aware that this follow-up is from your recent emergency room visit. If for any reason you are refused follow-up, please contact the [facility] Emergency Department at and asked to speak to the emergency department charge nurse. You were evaluated on an emergency basis today. On our examination we did not visualize the foreign body. It may not be inside anymore. I recommend following up with your enterprise security architect in 2 to 3 days. If you are to have any vaginal pain, vaginal discharge or vaginal bleeding please return to the emergency department. [facility] [address] [place] [id number] [facility] [address] [place] [id number] Sepsis Event Note (ED) - Evaluation Sepsis Screening Result: No Definite Risk - Focused Exam Vital Signs: Vital Signs Temp Pulse Resp BP Pulse Ox 04/03/20 08:58 36.2 C 84 18 133/73 95
[2020-04-03 18:04] VITALS: BP 131/88; PULSE 80
== END 2020-04-03 09:47 | disposition home or self-care (01) ==
LOC: MW.ED 08:40
DX: Z03.89 Encounter for observation for other suspected diseases and conditions ruled out (principal); F41.9 Anxiety disorder, unspecified; F32.9 Major depressive disorder, single episode, unspecified; E11.9 Type 2 diabetes mellitus without complications; E66.01 Morbid (severe) obesity due to excess calories; Z68.42 Body mass index [BMI] 45.0-49.9, adult; Z79.899 Other long term (current) drug therapy
CPT/HCPCS: 99282; 99283

== ENCOUNTER 2020-06-11 11:18 | Day surgery (SDC) | payer MEDICAID ==
[2020-06-11] MEDS ORDERED: Ropivacaine 0.5% 5 MG/ML 30 ML SDV INJECT ONE (13:30)
[2020-06-11] MEDS ORDERED: Lidocaine 2% 5 ML SDV INJECT ONE (13:30)
[2020-06-11] MEDS ORDERED: Betamethasone Acetate/Betamethasone Sod Phosphate 30 MG/5 ML MDV EPIDUR ONE (13:30)
[2020-06-11] MEDS ORDERED: Iopamidol 200-M 10 ML vial ITHECAL ONE (13:30)
--- NOTE | 2020-06-11 20:39 | OR ---
SURGEON: Yin Calvin D.O. DATE OF PROCEDURE: 06/11/2020 PRIMARY SURGEON: Yin Calvin D.O. ASSISTANTS: OR staff present: 1. Alfred Vann RN. 2. Dante Mercedes RN. 3. RT Regulo. WOUND CLASS: I. PREOPERATIVE DIAGNOSES: 1. L5-S1 degenerative disk disease. 2. Right L5-S1 radiculopathy. POSTOPERATIVE DIAGNOSES: 1. L5-S1 degenerative disk disease. 2. Right L5-S1 radiculopathy. PROCEDURES PERFORMED: 1. Right S1 transforaminal epidural steroid injection. 2. Fluoroscopic guidance for needle placement. 3. Local with oral Valium for sedation. SCREENING QUESTIONS: The patient answered "no" to all of the following questions: 1. Are you allergic to iodine, Betadine or latex? 2. Do you have a bleeding disorder? 3. Do you have any joint replacements, heart valve replacements, or a pacemaker? 4. Are you allergic to anti-inflammatories or blood thinners? 5. Do you have any current local or systemic infections? DESCRIPTION OF PROCEDURE: The patient had the procedure thoroughly explained including risks, benefits and alternatives. Consent was signed in my clinic indicating understanding and willingness to proceed. The patient presented to [facility] [place] where the patient was escorted to the dressing room to disrobe and change into a hospital gown. Preoperative vital signs were taken and stable. The patient reported that Valium was taken prior to the procedure. The patient was brought to the procedure room and placed in the prone position on the table. A pillow was placed under the abdomen in order to flatten the lumbar lordosis. The back was prepped with ChloraPrep and sterilely draped. All personnel in the operating room were dressed in appropriate attire including surgical scrubs, head and shoe covers. This was to ensure sterility while in the treatment room. During the time fluoroscopy was in use, all personnel in the operating room wore lead sin with thyroid collars. Sterile technique was used during the procedure. The fluoroscope was placed for the right S1 transforaminal epidural steroid injection. There was no sign of infection at the skin site for needle insertion. The skin was anesthetized with 2% lidocaine with a 27 gauge 1-1/2 inch needle. Then a 22 gauge 3-1/2 inch spinal needle, advanced to the right S1. Under direct fluoroscopic guidance needle position was verified in three views; AP, oblique and lateral, with 0.2 cubic centimeters increments of Isovue- 200 dye. No intravascular flow pattern was observed under live fluoroscopy. Then 12 milligrams of Celestone was slowly injected after negative aspiration of heme, cerebrospinal fluid and no paresthesias were noted. The needle was cleared prior to removal from the skin. No adverse reactions were noted. The patient was brought to the recovery room awake and in good condition by my staff. The patient was monitored and discharge instructions were given after a brief stay in the recovery area. Both oral and written discharge and follow up instructions were given. The patient will follow up in the clinic in 3-4 weeks post procedure to evaluate the efficacy. The patient verbalized understanding including understanding of those signs and symptoms that would require emergency care and knows how to contact the office if there are any problems or questions in the meantime. PREOPERATIVE PAIN: 4 -10/10. Increased with activites POSTOPERATIVE PAIN: 0/10. FOLLOWUP: In the Pain Clinic in 3 weeks. JEANNE / MING /[id number] CECIL
== END 2020-06-11 13:25 | disposition home or self-care (01) ==
LOC: MW.SDS 11:18
PROVIDERS: ATTEND Anesthesiology
DX: M51.17 Intervertebral disc disorders with radiculopathy, lumbosacral region (principal); M51.16 Intervertebral disc disorders with radiculopathy, lumbar region; M47.26 Other spondylosis with radiculopathy, lumbar region; M47.27 Other spondylosis with radiculopathy, lumbosacral region; M79.18 Myalgia, other site; E78.00 Pure hypercholesterolemia, unspecified; E66.01 Morbid (severe) obesity due to excess calories; Z79.899 Other long term (current) drug therapy; Z98.890 Other specified postprocedural states; Z68.42 Body mass index [BMI] 45.0-49.9, adult
CPT/HCPCS: 64483; J0702; J2795; Q9966

== ENCOUNTER 2021-06-07 19:22 | Emergency (ER) | payer MEDICAID ==
[2021-06-07] MEDS ORDERED: Ondansetron 4 MG/2 ML SDV IVPUSH ONE (19:44)
[2021-06-07] MEDS ORDERED: Sodium Chloride 0.9% 1,000 ML IV ONE (19:44)
[2021-06-07 20:20] LABS: BLOOD UREA NITROGEN,BUN 9 mg/dL (7.0-18.0); CARBON DIOXIDE,CO2 26.1 mmol/L (21.0-32.0); CHLORIDE,CL 104 mmol/L (98-107); GLUCOSE RANDOM 151 mg/dL (74-106); POTASSIUM,K 3.2 mmol/L (3.5-5.1); SODIUM,NA 140 mmol/L (136-145)
[2021-06-07] MEDS ORDERED: Potassium Chloride 20 MEQ Tab.ER PO ONE (20:28)
[2021-06-07] MEDS ORDERED: Magnesium Oxide 400 MG Tab PO ONE (20:28)
[2021-06-07 20:59] LABS: CORONAVIRUS COVID-19 NAA NEGATIVE (NEGATIVE); INFLUENZA A NAA NEGATIVE (NEGATIVE); INFLUENZA B NAA NEGATIVE (NEGATIVE)
[2021-06-07 21:17] VITALS: BP 113/72; PULSE 66
== END 2021-06-07 21:19 | disposition home or self-care (01) ==
LOC: MW.ED 19:22
DX: E16.2 Hypoglycemia, unspecified (principal); E66.9 Obesity, unspecified; Z20.822 Contact with and (suspected) exposure to COVID-19
CPT/HCPCS: 0240U; 36415; 80053; 81003; 81025; 82947; 83036; 83735; 85025; 93005; 96374; 99285; A9270; J2405; J7030

== ENCOUNTER 2021-12-19 07:20 | Emergency (ER) | payer MEDICAID ==
[2021-12-19] MEDS ORDERED: Sodium Chloride 0.9% 1,000 ML IV ONE (09:13)
[2021-12-19 10:41] LABS: CARBON DIOXIDE,CO2 25.6 mmol/L (21.0-32.0); POTASSIUM,K 3.9 mmol/L (3.5-5.1)
[2021-12-19] MEDS ORDERED: Iopamidol 755 MG/ML 500 ML Multipack Bottle IVPUSH STA (10:59)
[2021-12-19 19:11] VITALS: BP 122/64; PULSE 67
== END 2021-12-19 12:18 | disposition home or self-care (01) ==
LOC: MW.ED 07:20
DX: K57.32 Diverticulitis of large intestine without perforation or abscess without bleeding (principal); E78.00 Pure hypercholesterolemia, unspecified; E66.9 Obesity, unspecified; Z68.42 Body mass index [BMI] 45.0-49.9, adult; Z79.84 Long term (current) use of oral hypoglycemic drugs; Z79.899 Other long term (current) drug therapy
CPT/HCPCS: 36415; 74177; 80053; 81001; 83690; 85025; 96360; 99284; J7030; Q9967; 99283

== ENCOUNTER 2022-02-24 06:17 | Day surgery (SDC) | payer MEDICAID ==
[2022-02-24] MEDS ORDERED: Propofol 200 MG/20 ML SDV ONE (07:25)
[2022-02-24] MEDS ORDERED: Lactated Ringers 1,000 ML IV SCH (08:30)
[2022-02-24 12:23] VITALS: BP 109/64; PULSE 70
== END 2022-02-24 09:18 | disposition home or self-care (01) ==
LOC: MW.SDS 06:17
PROVIDERS: ATTEND Surgery
DX: K57.30 Diverticulosis of large intestine without perforation or abscess without bleeding (principal); F32.A Depression, unspecified; E78.00 Pure hypercholesterolemia, unspecified; E66.9 Obesity, unspecified; Z79.899 Other long term (current) drug therapy; Z86.16 Personal history of COVID-19; Z98.890 Other specified postprocedural states; Z68.42 Body mass index [BMI] 45.0-49.9, adult
CPT/HCPCS: J2704; J7120

== ENCOUNTER 2022-02-25 18:53 | Inpatient (IN) | payer MEDICAID ==
[2022-02-25] MEDS ORDERED: Sodium Chloride 0.9% 2.5 ML Syringe FLUSH PRN (19:16)
[2022-02-25] MEDS ORDERED: HYDROmorphone 1 MG/ML Syringe IVPUSH ONE ×2 (19:16→21:27)
[2022-02-25] MEDS ORDERED: Ondansetron 4 MG/2 ML SDV IVPUSH ONE (19:16)
[2022-02-25] MEDS ORDERED: Sodium Chloride 0.9% 10 ML Syringe FLUSH PRN (19:16)
[2022-02-25] MEDS ORDERED: Sodium Chloride 0.9% 1,000 ML IV ONE (19:16)
[2022-02-25 19:53] LABS: CARBON DIOXIDE,CO2 26.5 mmol/L (21.0-32.0); POTASSIUM,K 3.6 mmol/L (3.5-5.1)
[2022-02-25] MEDS ORDERED: Iopamidol 755 MG/ML 500 ML Multipack Bottle IVPUSH ONE (20:06)
[2022-02-25] MEDS ORDERED: metroNIDAZOLE/Normal Saline 500 MG in Premix Bag 1 BAG IV ONE (20:47)
[2022-02-25] MEDS ORDERED: Ciprofloxacin in D5W 400 MG in Premix Bag 1 BAG IV STA ×2 (20:49)
[2022-02-25] MEDS ORDERED: Ondansetron 4 MG/2 ML SDV IVPUSH PRN (22:12)
[2022-02-25] MEDS ORDERED: Albuterol/Ipratropium 3.0-0.5 MG/3 ML Neb Soln NEB PRN (22:12)
[2022-02-25] MEDS: Pantoprazole 40 MG in Sodium Chloride 0.9% 10 ML IVPUSH SCH (22:38)
[2022-02-26] MEDS: Lactated Ringers 1,000 ML IV SCH ×3 (00:04→23:38)
[2022-02-26] MEDS: Morphine 2 MG/ML SYRINGE IVPUSH PRN ×2 (00:05→05:02)
[2022-02-26] MEDS ORDERED: metroNIDAZOLE/Normal Saline 500 MG in Premix Bag 1 BAG IV SCH ×2 (03:00→04:00)
[2022-02-26 05:57] LABS: CARBON DIOXIDE,CO2 27.5 mmol/L (21.0-32.0); POTASSIUM,K 3.6 mmol/L (3.5-5.1)
[2022-02-26] MEDS ORDERED: Magnesium Sulfate/Water 2 GM in Premix Bag 1 BAG IV ONE (06:54)
[2022-02-26] MEDS ORDERED: Morphine 2 MG/ML SYRINGE IVPUSH PRN (07:10)
[2022-02-26] MEDS ORDERED: Piperacillin/Tazobactam 3.375 GM in Sodium Chloride 0.9% 50 ML IV SCH (07:15)
[2022-02-26] MEDS ORDERED: Ciprofloxacin in D5W 400 MG in Premix Bag 1 BAG IV SCH ×2 (08:00)
[2022-02-26] MEDS ORDERED: Piperacillin/Tazobactam 4.5 GM in Sodium Chloride 0.9% 100 ML IV SCH (09:45)
[2022-02-26] MEDS ORDERED: Morphine 4 MG/ML Syringe IVPUSH PRN (10:00)
[2022-02-26] MEDS ORDERED: Lactated Ringers 1,000 ML IV SCH (10:45)
[2022-02-26] MEDS: Morphine 4 MG/ML Syringe IVPUSH PRN ×5 (11:22→22:37)
[2022-02-26] MEDS: Piperacillin/Tazobactam 4.5 GM in Sodium Chloride 0.9% 100 ML IV SCH ×2 (13:28→20:15)
[2022-02-26] MEDS ORDERED: Acetaminophen 325 MG Tab PO PRN (18:28)
[2022-02-26] MEDS ORDERED: Acetaminophen 325 MG Tab PO ONE (18:45)
[2022-02-26] MEDS: metroNIDAZOLE/Normal Saline 500 MG in Premix Bag 1 BAG IV SCH (18:49)
[2022-02-26] MEDS: Pantoprazole 40 MG in Sodium Chloride 0.9% 10 ML IVPUSH SCH (21:53)
[2022-02-27] MEDS: Morphine 4 MG/ML Syringe IVPUSH PRN ×4 (02:01→23:04)
[2022-02-27] MEDS: Piperacillin/Tazobactam 4.5 GM in Sodium Chloride 0.9% 100 ML IV SCH ×4 (02:03→19:33)
[2022-02-27] MEDS: metroNIDAZOLE/Normal Saline 500 MG in Premix Bag 1 BAG IV SCH ×3 (03:34→18:10)
[2022-02-27] MEDS ORDERED: Acetaminophen 650 MG Supp RECTAL ONE (05:08)
[2022-02-27] MEDS ORDERED: Lactated Ringers 1,000 ML IV ONE (05:25)
[2022-02-27] MEDS ORDERED: Acetaminophen 325 MG Supp RECTAL ONE (05:30)
[2022-02-27 06:19] LABS: CARBON DIOXIDE,CO2 25.6 mmol/L (21.0-32.0); POTASSIUM,K 3.4 mmol/L (3.5-5.1)
[2022-02-27] MEDS ORDERED: Acetaminophen 325 MG Supp RECTAL PRN (11:52)
[2022-02-27] MEDS ORDERED: Potassium Chloride 20 MEQ in Premix Bag 1 BAG IV ONE (11:53)
[2022-02-27] MEDS: Lactated Ringers 1,000 ML IV SCH (13:52)
[2022-02-27] MEDS: Pantoprazole 40 MG in Sodium Chloride 0.9% 10 ML IVPUSH SCH (21:20)
[2022-02-28] MEDS: Piperacillin/Tazobactam 4.5 GM in Sodium Chloride 0.9% 100 ML IV SCH ×4 (01:20→20:22)
[2022-02-28] MEDS: Lactated Ringers 1,000 ML IV SCH (02:49)
[2022-02-28] MEDS: metroNIDAZOLE/Normal Saline 500 MG in Premix Bag 1 BAG IV SCH ×2 (02:49→12:09)
[2022-02-28] MEDS: Morphine 4 MG/ML Syringe IVPUSH PRN (04:08)
[2022-02-28 07:00] LABS: CARBON DIOXIDE,CO2 23.5 mmol/L (21.0-32.0); POTASSIUM,K 3.5 mmol/L (3.5-5.1)
[2022-02-28] MEDS ORDERED: Magnesium Sulfate/Water 2 GM in Premix Bag 1 BAG IV ONE (08:15)
[2022-02-28] MEDS: Dextrose 5%-Lactated Ringers 1,000 ML IV SCH (12:42)
[2022-02-28] MEDS ORDERED: Iopamidol 755 MG/ML 500 ML Multipack Bottle IVPUSH ONE (12:52)
[2022-02-28] MEDS: Pantoprazole 40 MG in Sodium Chloride 0.9% 10 ML IVPUSH SCH (23:37)
[2022-03-01] MEDS: Dextrose 5%-Lactated Ringers 1,000 ML IV SCH (01:00)
[2022-03-01] MEDS: Piperacillin/Tazobactam 4.5 GM in Sodium Chloride 0.9% 100 ML IV SCH ×4 (01:21→20:18)
[2022-03-01 06:51] LABS: CARBON DIOXIDE,CO2 23.3 mmol/L (21.0-32.0); POTASSIUM,K 3.2 mmol/L (3.5-5.1)
[2022-03-01] MEDS ORDERED: NS with KCl 40mEq 1,000 ML IV SCH (07:15)
[2022-03-01] MEDS: Pantoprazole 40 MG in Sodium Chloride 0.9% 10 ML IVPUSH SCH (21:55)
[2022-03-02] MEDS: Piperacillin/Tazobactam 4.5 GM in Sodium Chloride 0.9% 100 ML IV SCH ×2 (02:22→08:28)
[2022-03-02 08:15] LABS: CARBON DIOXIDE,CO2 23.9 mmol/L (21.0-32.0); POTASSIUM,K 3.7 mmol/L (3.5-5.1)
[2022-03-02] MEDS ORDERED: Magnesium Sulfate/Water 2 GM in Premix Bag 1 BAG IV ONE (08:45)
[2022-03-02 11:25] VITALS: BP 142/88; PULSE 71
== END 2022-03-02 14:35 | disposition home or self-care (01) | DRG 392 ==
LOC: MW.ED 18:53 → MW.MS 21:33
PROVIDERS: ADMIT Student in an Organized Health Care Education/Training Program; ATTEND Student in an Organized Health Care Education/Training Program
PROC: 0DJD8ZZ Inspection of Lower Intestinal Tract, Via Natural or Artificial Opening Endoscopic (ICD-10-PCS; principal; 2022-02-24)
DX: K57.80 Diverticulitis of intestine, part unspecified, with perforation and abscess without bleeding (principal); E78.00 Pure hypercholesterolemia, unspecified; Z79.84 Long term (current) use of oral hypoglycemic drugs; K57.20 Diverticulitis of large intestine with perforation and abscess without bleeding; F41.9 Anxiety disorder, unspecified; F32.A Depression, unspecified; E66.9 Obesity, unspecified; K57.30 Diverticulosis of large intestine without perforation or abscess without bleeding; Z68.35 Body mass index [BMI] 35.0-35.9, adult; Z79.899 Other long term (current) drug therapy; Z79.890 Hormone replacement therapy; Z97.3 Presence of spectacles and contact lenses; Z90.89 Acquired absence of other organs
CPT/HCPCS: 36415; 74177; 80053; 81003; 83605; 83690; 85025; 87040 ×2; J0744; J1170; J2405; J3490 ×2; J7030; Q9967; 82947; 83735; 84100; 85027; 87324; 99284; A9270-GY; C9113; J2270; J2543; J3475; J3480; J7120; J7121

== ENCOUNTER 2022-06-11 09:08 | Inpatient (IN) | payer MEDICAID ==
[2022-06-11] MEDS ORDERED: Ketorolac 30 MG/ML SDV IVPUSH ONE (09:36)
[2022-06-11 09:52] LABS: CARBON DIOXIDE,CO2 25.8 mmol/L (21.0-32.0); POTASSIUM,K 3.9 mmol/L (3.5-5.1)
[2022-06-11] MEDS ORDERED: Iopamidol 755 Mg/ML 100 ML Bottle IVPUSH ONE (10:20)
[2022-06-11] MEDS ORDERED: Morphine 4 MG/ML Syringe IVPUSH ONE (11:05)
[2022-06-11] MEDS ORDERED: cefTRIAXone 1 GM in Sodium Chloride 0.9% 50 ML IV SCH (11:15)
[2022-06-11] MEDS ORDERED: metroNIDAZOLE/Normal Saline 500 MG in Premix Bag 1 BAG IV SCH (12:00)
[2022-06-11] MEDS ORDERED: Sodium Chloride 0.9% 20 ML SDV IV PRN (12:09)
[2022-06-11] MEDS ORDERED: Metoclopramide 10 MG/2 ML SDV IVPUSH PRN (12:09)
[2022-06-11] MEDS ORDERED: Acetaminophen/oxyCODONE 325-5 MG Tab PO PRN (12:09)
[2022-06-11] MEDS ORDERED: Ondansetron 4 MG/2 ML SDV IVPUSH PRN (12:09)
[2022-06-11] MEDS ORDERED: Sodium Chloride 0.9% 2.5 ML Syringe FLUSH PRN (12:09)
[2022-06-11] MEDS ORDERED: diphenhydrAMINE 50 MG/ML SDV IVPUSH PRN (12:09)
[2022-06-11] MEDS ORDERED: Sodium Chloride 0.9% 10 ML Syringe FLUSH PRN (12:09)
[2022-06-11] MEDS: HYDROmorphone 2 MG/ML Syringe IVPUSH PRN ×2 (12:40→14:46)
[2022-06-11] MEDS: Lactated Ringers 1,000 ML IV SCH ×2 (14:52→22:58)
[2022-06-11] MEDS ORDERED: Ketorolac 30 MG/ML SDV IVPUSH PRN (15:00)
[2022-06-11] MEDS ORDERED: HYDROmorphone 1 MG/ML Syringe IVPUSH PRN (16:30)
[2022-06-11] MEDS: metroNIDAZOLE/Normal Saline 500 MG in Premix Bag 1 BAG IV SCH (18:27)
[2022-06-11] MEDS: Morphine 2 MG/ML SYRINGE IVPUSH PRN (18:47)
[2022-06-11] MEDS: Cyclobenzaprine 5 MG Tab PO SCH (20:23)
[2022-06-11] MEDS: Ketorolac 30 MG/ML SDV IVPUSH SCH (22:58)
[2022-06-12] MEDS: metroNIDAZOLE/Normal Saline 500 MG in Premix Bag 1 BAG IV SCH (03:57)
[2022-06-12] MEDS: Cyclobenzaprine 5 MG Tab PO SCH ×3 (03:57→21:20)
[2022-06-12] MEDS: Ketorolac 30 MG/ML SDV IVPUSH SCH ×5 (03:58→23:20)
[2022-06-12] MEDS: Morphine 2 MG/ML SYRINGE IVPUSH PRN ×4 (06:31→18:42)
[2022-06-12] MEDS: Omeprazole 20 MG Cap.CR PO SCH (06:31)
[2022-06-12 06:57] LABS: CARBON DIOXIDE,CO2 26.2 mmol/L (21.0-32.0); POTASSIUM,K 3.2 mmol/L (3.5-5.1)
[2022-06-12] MEDS: Lactated Ringers 1,000 ML IV SCH (08:28)
[2022-06-12] MEDS ORDERED: Lactated Ringers 1,000 ML IV ONE (09:21)
[2022-06-12] MEDS: Enoxaparin 40 MG/0.4 ML Syringe SUBCUT SCH (10:26)
[2022-06-12] MEDS: Piperacillin/Tazobactam 3.375 GM in Sodium Chloride 0.9% 50 ML IV SCH ×3 (11:25→21:20)
[2022-06-12] MEDS: Dextrose 5%-0.9% NaCl with KCl 1,000 ML IV SCH ×2 (12:18→23:20)
[2022-06-12 17:39] LABS: CARBON DIOXIDE,CO2 22.9 mmol/L (21.0-32.0); POTASSIUM,K 3.1 mmol/L (3.5-5.1)
[2022-06-12] MEDS: Potassium Chloride 20 MEQ Tab.ER PO SCH ×2 (18:41→23:20)
[2022-06-13] MEDS ORDERED: Morphine 2 MG/ML SYRINGE IVPUSH ONE (02:31)
[2022-06-13] MEDS: Piperacillin/Tazobactam 3.375 GM in Sodium Chloride 0.9% 50 ML IV SCH ×2 (03:58→09:08)
[2022-06-13] MEDS: Ketorolac 30 MG/ML SDV IVPUSH SCH (03:59)
[2022-06-13] MEDS: Cyclobenzaprine 5 MG Tab PO SCH (03:59)
[2022-06-13] MEDS: Morphine 2 MG/ML SYRINGE IVPUSH PRN ×2 (05:51→09:07)
[2022-06-13] MEDS: Potassium Chloride 20 MEQ Tab.ER PO SCH (05:51)
[2022-06-13] MEDS ORDERED: Acetaminophen 1,000 MG in Premix Bag 1 BAG IV ONE (06:28)
[2022-06-13] MEDS: Omeprazole 20 MG Cap.CR PO SCH (06:38)
[2022-06-13] MEDS ORDERED: Iopamidol 755 MG/ML 500 ML Multipack Bottle IVPUSH ONE (07:04)
[2022-06-13] MEDS ORDERED: Bisacodyl 5 MG Tab PO SCH (09:00)
[2022-06-13] MEDS: Enoxaparin 40 MG/0.4 ML Syringe SUBCUT SCH (09:07)
[2022-06-13 09:26] VITALS: BP 111/63; PULSE 122
[2022-06-13 11:06] LABS: CARBON DIOXIDE,CO2 23.3 mmol/L (21.0-32.0)
== END 2022-06-13 09:37 | DRG 392 ==
LOC: MW.ED 09:08 → MW.MS 12:54 → OBSVTOIN 06-12 09:38 → MW.MS 06-12 14:17
PROVIDERS: ADMIT Surgery; ATTEND Surgery
DX: K57.92 Diverticulitis of intestine, part unspecified, without perforation or abscess without bleeding (principal); K57.20 Diverticulitis of large intestine with perforation and abscess without bleeding; Z68.41 Body mass index [BMI] 40.0-44.9, adult; F41.9 Anxiety disorder, unspecified; Z79.899 Other long term (current) drug therapy; Z87.19 Personal history of other diseases of the digestive system; F32.A Depression, unspecified; E66.9 Obesity, unspecified; Z20.822 Contact with and (suspected) exposure to COVID-19; Z79.890 Hormone replacement therapy; Z79.84 Long term (current) use of oral hypoglycemic drugs; Z90.710 Acquired absence of both cervix and uterus; Z98.890 Other specified postprocedural states
CPT/HCPCS: 36415 ×2; 74018; 74177; 80048; 80053; 81003; 83690; 85025 ×2; 87635; 96365; 96366 ×2; 96368; 96375; 96376 ×2; 99285; A9270 ×4; G0378 ×3; J0696; J1170 ×3; J1885 ×4; J2270 ×3; J3490 ×3; J7050; J7120 ×3; Q9967; 83605; 99284; J0131; J1650; J2405; J2543; J3480; U0002

== ENCOUNTER 2022-07-04 18:48 | Observation (INO) | payer MEDICAID ==
[2022-07-04] MEDS ORDERED: Sodium Chloride 0.9% 2.5 ML Syringe FLUSH PRN (19:08)
[2022-07-04] MEDS ORDERED: Sodium Chloride 0.9% 10 ML Syringe FLUSH PRN (19:08)
[2022-07-04] MEDS ORDERED: Sodium Chloride 0.9% 1,000 ML IV ONE (20:23)
[2022-07-04 20:25] LABS: CARBON DIOXIDE,CO2 27.1 mmol/L (21.0-32.0); POTASSIUM,K 3.4 mmol/L (3.5-5.1)
[2022-07-04] MEDS ORDERED: Morphine 2 MG/ML SYRINGE IVPUSH ONE (20:30)
[2022-07-04] MEDS ORDERED: Iopamidol 755 MG/ML 500 ML Multipack Bottle IVPUSH STA (21:10)
[2022-07-04] MEDS ORDERED: LORazepam 2 MG/ML SDV IVPUSH ONE (22:09)
[2022-07-04] MEDS ORDERED: Ciprofloxacin 500 MG Tab PO ONE (22:09)
[2022-07-04] MEDS ORDERED: metroNIDAZOLE 250 MG Tab PO ONE (22:09)
[2022-07-04] MEDS ORDERED: Heparin Sodium 5,000 Units/ML Vial IVPUSH ONE (22:17)
[2022-07-04 22:57] LABS: CORONAVIRUS COVID-19 NAA NEGATIVE (NEGATIVE); INFLUENZA A NAA NEGATIVE (NEGATIVE); INFLUENZA B NAA NEGATIVE (NEGATIVE)
[2022-07-04] MEDS: Heparin Sodium/0.45% NaCl 500 ML IV SCH (22:59)
[2022-07-05] MEDS: Acetaminophen 325 MG Tab PO PRN ×2 (01:04→07:35)
[2022-07-05 05:18] LABS: CARBON DIOXIDE,CO2 25.9 mmol/L (21.0-32.0); POTASSIUM,K 3.5 mmol/L (3.5-5.1)
[2022-07-05] MEDS: metroNIDAZOLE 250 MG Tab PO SCH ×2 (09:46→18:09)
[2022-07-05] MEDS: Ciprofloxacin 500 MG Tab PO SCH ×2 (09:47→21:13)
[2022-07-05] MEDS ORDERED: Iopamidol 755 MG/ML 500 ML Multipack Bottle IVPUSH STA (10:43)
[2022-07-05] MEDS ORDERED: Sodium Chloride 0.9% 10 ML Syringe FLUSH PRN (12:17)
[2022-07-05] MEDS ORDERED: Sodium Chloride 0.9% 2.5 ML Syringe FLUSH PRN (12:17)
[2022-07-05] MEDS: metFORMIN 500 MG Tab PO SCH ×2 (13:53→21:13)
[2022-07-05] MEDS: Heparin Sodium/0.45% NaCl 500 ML IV SCH (14:45)
[2022-07-05] MEDS: Apixaban 5 MG Tab PO SCH (18:57)
[2022-07-05] MEDS ORDERED: traZODone 50 MG Tab PO PRN (21:00)
[2022-07-05] MEDS: cloNIDine 0.1 MG Tab PO SCH (21:13)
[2022-07-06] MEDS: metroNIDAZOLE 250 MG Tab PO SCH ×3 (00:56→09:07)
[2022-07-06] MEDS: metFORMIN 500 MG Tab PO SCH ×2 (06:22→13:00)
[2022-07-06] MEDS: Levothyroxine 25 MCG Tab PO SCH ×2 (06:22→06:37)
[2022-07-06] MEDS: Apixaban 5 MG Tab PO SCH (06:22)
[2022-07-06 07:44] LABS: CARBON DIOXIDE,CO2 24.7 mmol/L (21.0-32.0); POTASSIUM,K 3.4 mmol/L (3.5-5.1)
[2022-07-06] MEDS ORDERED: VILAZODONE 20 MG PO SCH (09:00)
[2022-07-06] MEDS: cloNIDine 0.1 MG Tab PO SCH (09:07)
[2022-07-06] MEDS: Ciprofloxacin 500 MG Tab PO SCH (09:07)
[2022-07-06 13:09] VITALS: BP 116/67; PULSE 110
== END 2022-07-06 13:24 | disposition home or self-care (01) ==
LOC: MW.ED 18:48 → MW.MS 22:08
PROVIDERS: ADMIT Internal Medicine; ATTEND Internal Medicine
DX: I26.99 Other pulmonary embolism without acute cor pulmonale (principal); F41.9 Anxiety disorder, unspecified; E28.2 Polycystic ovarian syndrome; E03.9 Hypothyroidism, unspecified; G43.909 Migraine, unspecified, not intractable, without status migrainosus; F32.A Depression, unspecified; E66.9 Obesity, unspecified; E11.9 Type 2 diabetes mellitus without complications; Z93.3 Colostomy status; Z87.19 Personal history of other diseases of the digestive system; Z79.899 Other long term (current) drug therapy; Z79.890 Hormone replacement therapy; Z79.84 Long term (current) use of oral hypoglycemic drugs; Z86.16 Personal history of COVID-19; Z20.822 Contact with and (suspected) exposure to COVID-19; Z98.890 Other specified postprocedural states; Z68.38 Body mass index [BMI] 38.0-38.9, adult
CPT/HCPCS: 0240U; 36415; 71275; 71275-26; 74177; 74177-26; 80048; 80053; 81003; 83605; 85025; 85610; 85730; 87040; A9270-GY; J1644; J2060; J2270; J3490; J7030; Q9967

== ENCOUNTER 2022-10-03 19:54 | Emergency (ER) | payer MEDICAID ==
[2022-10-03] MEDS ORDERED: Octyl 2-Cyanoacrylate 1 g/1 mL 1 APPLIC PEN TOP ONE (20:51)
[2022-10-03 21:09] VITALS: BP 110/54; PULSE 62
== END 2022-10-03 21:08 | disposition home or self-care (01) ==
LOC: MW.ED 19:54
DX: K91.873 Postprocedural seroma of a digestive system organ or structure following other procedure (principal); E03.9 Hypothyroidism, unspecified; E66.9 Obesity, unspecified; Z68.36 Body mass index [BMI] 36.0-36.9, adult; Z86.16 Personal history of COVID-19; Z79.899 Other long term (current) drug therapy; Z79.01 Long term (current) use of anticoagulants
CPT/HCPCS: 99282; A9270; 99283

== ENCOUNTER 2022-10-28 15:12 | Emergency (ER) | payer MEDICAID ==
[2022-10-28 17:20] LABS: APPEARANCE,URINE CLEAR; BILIRUBIN,URINE NEGATIVE (NEGATIVE); COLOR,URINE YELLOW; GLUCOSE,URINE NEGATIVE (NEGATIVE); KETONES,URINE NEGATIVE (NEGATIVE); LEUKOCYTE ESTERASE,URINE NEGATIVE (NEGATIVE); NITRITE,URINE NEGATIVE (NEGATIVE); OCCULT BLOOD,URINE NEGATIVE (NEGATIVE); PH,URINE 5.5 (5.0-8.0); PROTEIN,URINE NEGATIVE (NEGATIVE); UROBILINOGEN,URINE 0.2 EU/dL (<2.0)
[2022-10-28] MEDS ORDERED: Sodium Chloride 0.9% 10 ML Syringe FLUSH PRN (17:28)
[2022-10-28] MEDS ORDERED: Sodium Chloride 0.9% 2.5 ML Syringe FLUSH PRN (17:28)
[2022-10-28 17:35] LABS: BASOPHILS PERCENT AUTO 0.3 % (0.0-1.5); EOSINOPHILS ABSOLUTE AUTO 0.2 K/uL (0.0-0.7); EOSINOPHILS PERCENT AUTO 1.9 % (0.0-7.0); HEMATOCRIT 36.9 % (36.0-46.0); HEMOGLOBIN 12.3 g/dL (12.0-16.0); LYMPHOCYTES ABSOLUTE AUTO 3.4 K/uL (0.6-2.4); LYMPHOCYTES PERCENT AUTO 29.2 % (16.0-40.0); MEAN CORPUSCULAR HEMOGLOBIN 30.1 pg (27.0-32.0); MEAN CORPUSCULAR HGB CONC 33.3 g/dL (31.0-37.0); MEAN CORPUSCULAR VOLUME 90.2 fL (80.0-98.0); MONOCYTES ABSOLUTE AUTO 0.6 K/uL (0.0-0.8); MONOCYTES PERCENT AUTO 5.2 % (0.0-15.0); NEUTROPHILS ABSOLUTE AUTO 7.4 K/uL (1.4-5.7); NEUTROPHILS PERCENT AUTO 63.4 % (48.0-80.0); NRBC ABSOLUTE 0 K/uL; PLATELET COUNT,PLT 286 K/uL (150-400); RED BLOOD CELL COUNT 4.09 M/uL (4.30-5.90); WHITE BLOOD CELL COUNT,WBC 11.66 K/uL (4.0-11.0)
[2022-10-28 17:45] LABS: ALBUMIN 3.7 g/dL (3.4-5.0); BILIRUBIN TOTAL 0.4 mg/dL (0.2-1.0); CALCIUM 9.2 mg/dL (8.5-10.1); CARBON DIOXIDE,CO2 28.1 mmol/L (21.0-32.0); CREATININE 0.8 mg/dL (0.6-1.0); EST CRCL DRUG DOSING (CG) 73.93 mL/min; POTASSIUM,K 4.1 mmol/L (3.5-5.1); PROTEIN TOTAL,TP 7.5 g/dL (6.4-8.2)
[2022-10-28 18:36] LABS: LACTIC ACID 0.9 mmol/L (0.4-2.0)
[2022-10-28] MEDS ORDERED: Iopamidol 755 Mg/ML 100 ML Bottle IVPUSH ONE (18:48)
[2022-10-28 20:44] VITALS: BP 122/75; PULSE 61
== END 2022-10-28 20:43 | disposition home or self-care (01) ==
LOC: MW.ED 15:12
DX: K43.9 Ventral hernia without obstruction or gangrene (principal); E03.9 Hypothyroidism, unspecified; E66.9 Obesity, unspecified; Z79.899 Other long term (current) drug therapy; Z86.16 Personal history of COVID-19; Z79.01 Long term (current) use of anticoagulants; Z68.36 Body mass index [BMI] 36.0-36.9, adult
CPT/HCPCS: 36415; 74177; 80053; 81003; 83605; 83690; 85025; 99284; J3490; Q9967